=== PATIENT | male | born 1945 | race Caucasian/White ===

== ENCOUNTER 2025-11-16 14:46 | Emergency (ER) | payer OTHER ==
[~2025-11-16] VITALS: Ht 182.9 cm; Wt 105.1 kg
--- NOTE | 2025-11-16 15:35 | ED.PDOC ---
History of Present Illness HPI Comments 80 y/o obese M presents with c/c of left shoulder pain and deformity s/p mechanical fall. Patient reports suspicion on dislocating his left shoulder after bumping into the corner of his bed and losing balance and falling onto his left shoulder, earlier, today. No endorsed prior symptoms, lost of consciousnes s, or further injuries. Pain is a 3/10 in severity. Significant history for [place], HLD, HTN and family history of heart disease. Chief Complaint: Upper Extremity Time Seen by MD: 15:00 Reviewed Notes: Nurses Notes, Medications, Allergies Information Source: Patient Mode of Arrival: Ambulatory Severity: Moderate Timing: Hours Duration: Since onset Prehospital treatment: None Past Medical History PAST MEDICAL HISTORY: High Lipids, HTN, [place] Surgical History: Denies all surgeries Family History Family History: Reviewed,noncontributory to illness, No family hx of Cancer, No family hx of DM, No family hx of HTN, No family hx ofKidney royal, No family hx of Liver royal, No family hx of Lung royal, No family hx of Stroke, Family hx of heart royal Social History Smoker: Non-Smoker Alcohol: Denies ETOH Use Drugs: Denies Drug Use Lives In: Home Constitutional: denies: chills, diaphoresis, fatigue, fever, malaise, sweats, weakness, others EENTM: denies: blurred vision, double vision, ear bleeding, ear discharge, ear drainage, ear pain, ear ringing, eye pain, eye redness, hearing loss, mouth pain, mouth swelling, nasal discharge, nose bleeding, nose congestion, nose pain, photophobia, tearing, throat pain, throat swelling, voice changes, others Respiratory: denies: cough, hemoptysis, orthopnea, SOB at rest, shortness of breath, SOB with excertion, stridor, wheezing, others Cardiovascular: denies: chest pain, dizzy spells, diaphoresis, Dyspnea on exertion, edema, irregular heart beat, left arm pain, lightheadedness, palpitations, PND, syncope, others Gastrointestinal: denies: abdomen distended, abdominal pain, blood streaked bowels, constipated, diarrhea, dysphagia, difficulty swallowing, hematemesis, melena, nausea, poor appetite, poor fluid intake, rectal bleeding, rectal pain, vomiting, others Genitourinary: denies: burning, dysuria, flank pain, frequency, hematuria, incontinence, penile discharge, penile sore, pain, testicle pain, testicle swelling, urgency, others Neurological: denies: dizziness, fainting, headache, left sided numbness, left sided weakness, numbness, paresthesia, pre-existing deficit, right sided numbness, right sided weakness, seizure, speech problems, tingling, tremors, weakness, others Musculoskeletal: reports: joint pain (left shoulder pain and deformity ); denies: back pain, gout, joint swelling, muscle pain, muscle stiffness, neck pain, others Integumetry: denies: bruises, change in color, change in hair/nails, dryness, laceration, lesions, lumps, rash, wounds, others Allergic/Immunocompromised: denies: Difficulty Healing, Frequent Infections, Hives, Itching, others Hematologic/Lymphatic: denies: anemia, blood clots, easy bleeding, easy bruising, swollen glands, others Endocrine: denies: excessive hunger, excessive sweating, excessive thirst, excessive urination, flushing, intolerance to cold, intolerance to heat, unexplained weight gain, unexplained weight loss, others Psychiatric: denies: anxiety, bipolar disorder, depression, hopeless, panic disorder, schizophrenia, sleepless, suicidal, others All Other Systems: Reviewed and Negative Physical Exam General Appearance: Moderate Distress HEENT: Normal ENT Inspection, Pharynx Normal, TMs Normal Neck: Full Range of Motion, Non-Tender, Normal, Normal Inspection Respiratory: Chest Non-Tender, Lungs Clear, No Accessory Muscle Use, No Respiratory Distress, Normal Breath Sounds Cardiovascular: No Edema, No JVD, No Murmur, No Gallop, Normal Peripheral Pulses, Regular Rate/Rhythm Breast Exam: Deferred Gastrointestinal: No Organomegaly, Non Tender, No Pulsatile Mass, Normal Bowel Sounds, Soft Genitalia: Deferred Pelvic: Deferred Rectal: Deferred Extremities: No calf tenderness, Normal capillary refill, No pedal edema Musculoskeletal : Location: Left Extremity Location: Shoulder Apperance: Deformity, Limited ROM, Tenderness: Moderate Neurologic: Alert, 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 Was a procedure done?: No Differential Dx Considerations may include: dislocation, sprain, strain, fractures, contusions, among others X-Ray, Labs, Meds, VS Vital Signs Date Time Temp Pulse Resp B/P (MAP) Pulse Ox O2 Delivery O2 Flow Rate FiO2 11/16/25 14:49 98.0 88 16 111/76 93 98.0 X-ray of the left shoulders shows: FINDINGS/IMPRESSION: There is a an overlying displaced fracture involving the distal clavicle. The visualized joint space is well maintained. The patient is being placed in a shoulder clavicular strap The patient is discharged and will follow up with the primary care doctor The patient will return to the emergency department's condition worsens. Images Reviewed?: Images reviewed and evaluated by me Time of 1ST Reevaluation: 15:45 Reevaluation 1ST: Unchanged Patient Education/Counseling: Diagnosis, Treatment, Prognosis, Need For Follow Up Family Education/Counseling: No Family Present SEPSIS Sepsis Screen Date sepsis recognized/suspect: Nov 16, 2025 Time Sepsis recognized/suspect: 1449 Recent Procedure: No On Antibiotic Therapy: No Respiratory Rate >20: No Heart Rate >90: No Temp<36 C (96.8 F) or >38.3 C: No SBP <90 or MAP <65 mmHG: No New Acute Mental Status Change: No Is the patient on CPAP, BIPAP,: No Physician Orders L Shoulder 2+ View Xray (11/16/25 15:04) Ortho Supplies (11/16/25 15:48) Vital Signs Date Time Temp Pulse Resp B/P (MAP) Pulse Ox O2 Delivery O2 Flow Rate FiO2 11/16/25 14:49 98.0 88 16 111/76 93 98.0 Departure 1 Departure Time of Disposition: 16:10 Impression: Primary Impression: Closed left clavicular fracture Qualified Codes: S42.002A - Fracture of unspecified part of left clavicle, initial encounter for closed fracture Disposition: 01 HOME / SELF CARE / HOMELESS Condition: Fair Discharged With: Self Critical Care Note Critical Care Time?: No Stability Stability form required: No Heart Score Heart Score: Heart Score Response (Comments) Value History N/A 0 EKG N/A 0 Age N/A 0 Risk Factors N/A 0 Troponin N/A 0 Total 0 I personally scribed for TIANNA BENÍTEZ MD ([email or web address]) on 11/16/25 at 15:35. Electronically submitted by Guy Leija ([email or web address]). TIANNA BENÍTEZ MD Nov 16, 2025 15:35
--- NOTE | 2025-11-16 15:40 | DVH ---
EXAM: XY L SHOULDER 2+ VIEW XRAY CLINICAL INDICATION: trauma TECHNIQUE: XY L SHOULDER 2+ VIEW XRAY COMPARISON: None FINDINGS/IMPRESSION: There is a an overlying displaced fracture involving the distal clavicle. The visualized joint space is well maintained. There is no radiopaque foreign body.
[2025-11-16] MEDS: HYDROcodone-ACET 5/325MG TAB PO ONE (17:12)
[2025-11-16 17:22] VITALS: BP 115/78; PULSE 88; RESP 16; TEMP 98; O2SAT 95
== END 2025-11-16 17:23 | disposition home or self-care (01) ==
LOC: ER 14:46
DX: S42.032A Displaced fracture of lateral end of left clavicle, initial encounter for closed fracture (principal); E78.5 Hyperlipidemia, unspecified; I10 Essential (primary) hypertension; E66.9 Obesity, unspecified; Z68.31 Body mass index [BMI] 31.0-31.9, adult; W01.190A Fall on same level from slipping, tripping and stumbling with subsequent striking against furniture, initial encounter; Y93.89 Activity, other specified; Y92.89 Other specified places as the place of occurrence of the external cause; Y99.8 Other external cause status
CPT/HCPCS: 29240; 73030